=== PATIENT | female | born 1995 | race African-American/Black ===

== ENCOUNTER 2017-11-09 00:33 | Emergency (ER) | payer MEDICAID, OTHER ==
[~2017-11-09] VITALS: Ht 152.4 cm; Wt 56.8 kg
[2017-11-09 01:10] VITALS: BP 112/70
== END 2017-11-09 01:30 | disposition left against medical advice (07) ==
LOC: ER 00:33
DX: M54.2 Cervicalgia (principal); Z53.21 Procedure and treatment not carried out due to patient leaving prior to being seen by health care provider